=== PATIENT | female | born 1955 ===

== ENCOUNTER 2022-11-14 10:00 | Emergency (ER) | payer MEDICARE, BC ==
[2022-11-14] MEDS ORDERED: Sodium Chloride 0.9% 10 ML Syringe FLUSH PRN (10:04)
[2022-11-14 10:51] LABS: ANION GAP 13.9 mEq/L (7-13); CHLORIDE,CL 103 mmol/L (98-107); SODIUM,NA 141 mmol/L (136-145)
[2022-11-14 10:54] LABS: PTT,PARTIAL THROMBOPLSTIN TIME 25.7 SEC (22.0-34.0)
[2022-11-14 11:03] LABS: ESTIMATED GFR 74 mL/min (>=60)
== END 2022-11-14 11:00 ==
LOC: DL.ED 10:00
DX: I63.9 Cerebral infarction, unspecified (principal)
CPT/HCPCS: 36415; 70450; 80053; 80307; 82140; 82947; 83735; 84484; 85025; 85610; 85730; 93005; 93010; 99285; J3490